=== PATIENT | male | born 1970 | race Caucasian/White ===

== ENCOUNTER 2018-10-16 21:51 | Inpatient (IN) | payer MEDICAID ==
[~2018-10-16] VITALS: Ht 172.7 cm; Wt 78.0 kg
[2018-10-16 21:58] VITALS: Ht 172.7 cm; Wt 78.0 kg
[2018-10-16 22:44] LABS: BASOPHIL % 0.8 % (0-2); PLATELET COUNT 219 x10^3mcL (130-400); RED CELL DISTRIBUTION WIDTH 13.7 % (11.5-14.5)
[2018-10-16 23:17] LABS: ALBUMIN 3.5 g/dL (3.4-5.0); BILIRUBIN TOTAL 0.28 mg/dL (0.20-1.00); CALCIUM 6.8 mg/dL (8.5-10.1); CARBON DIOXIDE 15.6 mmol/L (21-32); POTASSIUM SERUM 4.6 mmol/L (3.5-5.1); TOTAL PROTEIN, SERUM 7.2 g/dL (6.4-8.2)
[2018-10-16 23:21] LABS: CREATININE SERUM 8.7 mg/dL (0.7-1.3)
[2018-10-17] VITALS (7 sets, daily range): BP systolic 101–150; BP diastolic 57–84
[2018-10-17 01:37] LABS: MAGNESIUM 2.6 mg/dL (1.8-2.4)
[2018-10-17] MEDS ORDERED: VASOTEC20 MG PO (03:38)
[2018-10-17] MEDS ORDERED: LASIX40 MG PO (03:39)
[2018-10-17 06:41] LABS: CALCIUM 6.8 mg/dL (8.5-10.1); CARBON DIOXIDE 13.6 mmol/L (21-32); MAGNESIUM 2.4 mg/dL (1.8-2.4); PHOSPHOROUS 6.1 mg/dL (2.5-4.9); POTASSIUM SERUM 4.7 mmol/L (3.5-5.1)
[2018-10-17 06:52] LABS: CREATININE SERUM 8.3 mg/dL (0.7-1.3)
[2018-10-17 08:13] LABS: BASOPHIL % 0.6 % (0-2); PLATELET COUNT 188 x10^3mcL (130-400); RED CELL DISTRIBUTION WIDTH 13.8 % (11.5-14.5)
[2018-10-17 10:21] LABS: microscopic required? YES; urine erythrocyte 1+ (NEGATIVE)
[2018-10-17 10:30] LABS: AMPHETAMINE QUAL UR NONE DETECTED (See below)
[2018-10-18 05:46] VITALS: BP 125/76
[2018-10-18 06:41] LABS: BILIRUBIN TOTAL 0.21 mg/dL (0.20-1.00); CALCIUM 6.7 mg/dL (8.5-10.1); CARBON DIOXIDE 13.6 mmol/L (21-32); POTASSIUM SERUM 5.3 mmol/L (3.5-5.1)
[2018-10-18 06:43] LABS: ALBUMIN 2.8 g/dL (3.4-5.0)
[2018-10-18 06:44] LABS: CREATININE SERUM 8.1 mg/dL (0.7-1.3)
[2018-10-18 07:08] LABS: BASOPHIL % 0.6 % (0-2); PLATELET COUNT 195 x10^3mcL (130-400); RED CELL DISTRIBUTION WIDTH 13.8 % (11.5-14.5)
[2018-10-18 09:01] VITALS: BP 132/81
[2018-10-18 12:20] VITALS: BP 121/77
[2018-10-18] MEDS ORDERED: ATENOLOL25 MG PO (17:01)
[2018-10-18] MEDS ORDERED: NOR5 PO (17:04)
[2018-10-18 17:38] VITALS: BP 141/82
[2018-10-18 17:51] VITALS: BP 141/82
== END 2018-10-18 19:15 | disposition home or self-care (01) | DRG 282 ==
LOC: ED 21:51 → DU 10-17 00:48
PROVIDERS: Emergency Medicine; Surgery; ADMIT Family Medicine
DX: K85.90 Acute pancreatitis without necrosis or infection, unspecified (principal); N17.0 Acute kidney failure with tubular necrosis; N18.6 End stage renal disease; I12.0 Hypertensive chronic kidney disease with stage 5 chronic kidney disease or end stage renal disease; E83.39 Other disorders of phosphorus metabolism; E83.41 Hypermagnesemia; E83.51 Hypocalcemia; E78.5 Hyperlipidemia, unspecified; D63.8 Anemia in other chronic diseases classified elsewhere; Z68.26 Body mass index [BMI] 26.0-26.9, adult
CPT/HCPCS: 83880; J0500; J0885-EC; J3490; J7030; Q0092; Q0162

== ENCOUNTER 2019-12-19 23:31 | Emergency (ER) | payer MEDICAID ==
[~2019-12-19] VITALS: Ht 172.7 cm; Wt 88.0 kg
[~2019-12-19 23:31] MED LIST: ATENOLOL25 MG PO; LASIX40 MG PO; NOR5 PO; VASOTEC20 MG PO
[2019-12-19 23:35] VITALS: Ht 172.7 cm; Wt 88.0 kg
[2019-12-20 00:28] VITALS: BP 153/93
== END 2019-12-20 00:28 | disposition home or self-care (01) ==
LOC: ED 23:31
DX: J02.9 Acute pharyngitis, unspecified (principal); I12.9 Hypertensive chronic kidney disease with stage 1 through stage 4 chronic kidney disease, or unspecified chronic kidney disease; N18.9 Chronic kidney disease, unspecified; Z79.899 Other long term (current) drug therapy